=== PATIENT | female | born 2000 | race Caucasian/White ===

== ENCOUNTER 2023-10-01 19:21 | Inpatient (IN) | payer MEDICAID, SELFPAY ==
[2023-10-01 19:39] VITALS: PULSE 116; O2SAT 97
[2023-10-01 19:40] VITALS: BP 123/77; PULSE 116; RESP 18; TEMP 36.6
[2023-10-01 19:43] VITALS: BMI 37.3
[2023-10-01 19:59] LABS: Absolute Lymphocyte Count 2.29 X10^3/uL (0.83-4.51); Absolute Neutrophil Count 7.8 X10^3/uL (2.0-7.7); Basophil# 0.03 X10^3/uL; Basophil% 0.3 % (0-1); Eosinophil# 0.04 X10^3/uL; Eosinophils% 0.4 % (0-5); Hematocrit 31.5 % (37-47); Hemoglobin 9.7 g/dL (12.0-15.0); Lymphocyte # 2.29 X10^3/ul (0.83-4.51); Mean Corp Hgb Conc 30.8 g/dL (32-36); Mean Corpuscular Hgb 22.7 pg (27.0-32.0); Mean Corpuscular Volume 73.6 fL (81-99); Monocyte# 0.69 X10^3/uL; Monocyte% 6.3 % (0-10); NRBC Flagged by Analyzer 0 % (0-5); Neutrophil # 7.75 X10^3/uL (2.7-7.7); Neutrophil % 71.2 % (47-70); Platelet Count 142 K/mm3 (150-450); RBC Distribution Width CV 16.2 % (11.6-14.6); RBC Distribution Width SD 42.3 fl (35.1-43.9); Red Blood Count 4.28 M/mm3 (4.2-5.4); White Blood Count 10.9 K/mm3 (4.4-11.0)
[2023-10-01] MEDS: miSOPROStol 25 MCG TABLET PO (20:18)
[2023-10-01 20:39] LABS: Syphilis Antibodies Non-reactive
[2023-10-01] MEDS: LACTATED RINGERS 500 ML 999 ML IV (22:44)
[2023-10-02] VITALS (33 sets, daily range): BP systolic 103–137; BP diastolic 57–89; PULSE 70–103; RESP 16–18; TEMP 36.2–37.1; O2SAT 81–100
[2023-10-02 01:02] LABS: ROM Internal Control Test YES-OK TO RESULT pt. (Internal QC); ROM Patient Test Negative (Negative); Record Kit Lot#, ROM+ K1409
[2023-10-02] MEDS: miSOPROStol 25 MCG TABLET PO ×2 (01:14→05:17)
--- NOTE | 2023-10-02 07:05 | PCM.HP.OB ---
HPI - General General Date of Admission: 10/01/23 Date of Service: 10/02/23 Chief Complaint: Induction of labor HPI Narrative MAJOR ANDREWS, is a 22 F who presents induction of labor at 41 weeks. Known hx of von Willebrand type one. Has minh seen by hematology and anesthesia. Labs normal September 12. Redrawn yesterday but results will take days. Patient has never needed DDAVP. Does have desmopressin but does remember needing to use it for anything. Waiting for approval for epidural placement from anesthesia. Maternal Data Information Final DEDRA: 09/25/23 Gestational age: 41 weeks [facility] Medical History Anxiety Family history of cleft palate Von Willebrand disease type IA Home Medications desmopressin 150 mcg/spray (0.1 mL) nasal spray 2 spray intranasal DAILY PRN bleeding 10/01/23 [History Last Taken Unknown] famotidine 20 mg tablet 40 mg PO DAILY heartburn 10/01/23 [History Last Taken 09/29/23] ondansetron 4 mg disintegrating tablet 4 mg PO Q6H PRN PRN nausea 10/01/23 [History Last Taken Unknown] vit no.95-ferrous fumarate 28 mg-folic acid 800 mcg tablet () 1 tab PO DAILY 10/01/23 [History Last Taken Unknown] Allergy/AdvReac Type Severity Reaction Status Date / Time aspirin Allergy Unknown Other Verified 10/01/23 19:47 ibuprofen AdvReac Other Verified 10/01/23 19:47 NSAIDS (Non-Steroidal AdvReac Other Verified 10/01/23 19:47 Anti-Inflamma Surgical History History of tonsillectomy and adenoidectomy Social History Smoking Status: Never smoker History 1 Elective abortions Hx Para 0 Spontaneous abortions Hx # Term Pregnancies Ectopic pregnancies Hx # Pregnancies Multiple births # of living children NST FHR Rate Baby A Baseline: 140 Variability:: Moderate Accelerations:: 15 x 15 Decelerations:: None NST Reactive:: Yes FHR Category:: Category I Uterine Activity:: occassional Vital Signs Vital Signs Vital Signs: 10/01/23 19:39 10/01/23 19:39 10/01/23 19:40 Temperature Temperature Source Pulse Rate 116 H Respiratory Rate Blood Pressure 123/77 H BP Systolic 123 BP Diastolic 77 Pulse Ox 97 10/01/23 19:40 10/01/23 19:40 10/01/23 19:40 Temperature Temperature Source Temporal Pulse Rate 116 H Respiratory Rate 18 Blood Pressure BP Systolic BP Diastolic Pulse Ox 10/01/23 19:40 10/02/23 00:17 10/02/23 00:17 Temperature 97.8 F Temperature Source Pulse Rate 88 Respiratory Rate Blood Pressure BP Systolic BP Diastolic Pulse Ox 98 10/02/23 00:18 10/02/23 00:18 10/02/23 00:18 Temperature Temperature Source Temporal Pulse Rate 88 Respiratory Rate Blood Pressure 132/89 H BP Systolic 132 BP Diastolic 89 Pulse Ox 10/02/23 00:18 10/02/23 00:18 10/02/23 04:10 Temperature 97.4 F L Temperature Source Pulse Rate Respiratory Rate 18 Blood Pressure 119/70 BP Systolic 119 BP Diastolic 70 Pulse Ox 10/02/23 04:10 10/02/23 04:10 10/02/23 04:10 Temperature Temperature Source Temporal Pulse Rate 77 Respiratory Rate 18 Blood Pressure BP Systolic BP Diastolic Pulse Ox 10/02/23 04:10 Temperature 97.6 F L Temperature Source Pulse Rate Respiratory Rate Blood Pressure BP Systolic BP Diastolic Pulse Ox Weight Weight: 86.818 kg Body Mass Index (BMI) 37.3 Physical Exam Const alert and no apparent distress General Appearance: cooperative HEENT normocephalic Resp normal respiratory effort Cardio regular rate GI soft to palpation GI Narrative: gravid, nontender, appropriate for gestational age Extremity no calf tenderness General Extremity: edema Skin no wounds Rashes: No rashes noted Psych activity/motor behavior normal Labs Labs Labs: Blood Type O POSITIVE Antibody Screen NEGATIVE Hct 31.5 % (37-47) L Hgb 9.7 g/dL (12.0-15.0) L Syphilis Total Ab Non-reactive Miscellaneous Test Pending Assessment & Plan (1) 41 weeks gestation of : (2) Von willebrand disease, type 1: COMMENT: ddavp is available quickly if needed PLAN: von willebrand AG 68% on September 12 (3) Encounter for induction of labor: PLAN: cytotec and de paz bulb
--- NOTE | 2023-10-02 07:35 | OB.TRI.HP_ITS ---
[facility] Medical History Anxiety Family history of cleft palate Von Willebrand disease type IA Home Medications desmopressin 150 mcg/spray (0.1 mL) nasal spray 2 spray intranasal DAILY PRN bleeding 10/01/23 [History Last Taken Unknown] famotidine 20 mg tablet 40 mg PO DAILY heartburn 10/01/23 [History Last Taken 09/29/23] ondansetron 4 mg disintegrating tablet 4 mg PO Q6H PRN PRN nausea 10/01/23 [History Last Taken Unknown] vit no.95-ferrous fumarate 28 mg-folic acid 800 mcg tablet () 1 tab PO DAILY 10/01/23 [History Last Taken Unknown] Allergy/AdvReac Type Severity Reaction Status Date / Time aspirin Allergy Unknown Other Verified 10/01/23 19:47 ibuprofen AdvReac Other Verified 10/01/23 19:47 NSAIDS (Non-Steroidal AdvReac Other Verified 10/01/23 19:47 Anti-Inflamma Surgical History History of tonsillectomy and adenoidectomy Social History Smoking Status: Never smoker History 1 Elective abortions Hx Para 0 Spontaneous abortions Hx # Term Pregnancies Ectopic pregnancies Hx # Pregnancies Multiple births # of living children
[2023-10-02] MEDS: 0.9% Normal Saline Single 100 ML IV.SOLN. INTRA-UTER (08:30)
--- NOTE | 2023-10-02 08:54 | PN.OBGYN_ITS ---
Subjective Subjective Coping and doing well. Big gush and leakage of clear fluid. Objective Data Objective Data Vital Signs: Vital Signs Temp Pulse Resp BP Pulse Ox 98.1 F 81 16 119/72 98 10/02/23 07:33 10/02/23 07:38 10/02/23 07:33 10/02/23 07:38 10/02/23 00:17 Weight: 191 lb 6.4 oz Body Mass Index (BMI) 37.3 Intake & Output: Intake and Output for Last 24 Hours 09/30/23 10/01/23 10/02/23 23:59 23:59 23:59 Intake Total 700 / 700 600 / 600 Output Total 300 / 300 800 / 800 Balance 400 / 400 -200 / -200 Lab / Micro Data 10/01/23 19:40 Labs: Laboratory Results - last 24 hr 10/01/23 19:40: WBC 10.9, RBC 4.28, Hgb 9.7 L, Hct 31.5 L, MCV 73.6 L, MCH 22.7 L, MCHC 30.8 L, RDW Std Deviation 42.3, RDW Coeff of Diana 16.2 H, Plt Count 142 L , MPV 11.0, Immature Gran % (Auto) 0.800, Neut % (Auto) 71.2 H, Lymph % (Auto) 21.0, Hendricks % (Auto) 6.3, Eos % (Auto) 0.4, Baso % (Auto) 0.3, Absolute Neuts (auto) 7.8 H, Absolute Lymphs (auto) 2.29, Nucleated RBC % 0, Syphilis Total Ab Non-reactive, Blood Type O POSITIVE, Antibody Screen NEGATIVE 10/02/23 00:25: Vag Amniotic Fld Detect Negative Physical Exam Manual OB Exam: presentation cephalic, dilated 2cm, effaced 60, station -3 and other Angelo inserted without difficulty NS 30ml instilled Psych Judgement: judgement good NST FHR Rate Baby A Baseline: 130 Variability:: Moderate Accelerations:: 15 x 15 Decelerations:: None FHR Category:: Category I Uterine Activity:: Irregular Assessment & Plan (1) Encounter for induction of labor: (2) Von willebrand disease, type 1: COMMENT: ddavp is available quickly if needed (3) 41 weeks gestation of : PLAN: Plan 1) Angelo inserted 2) Start Pitocin after 9:15 3) Positional changes 4) Anesthesia consult
[2023-10-02] MEDS: Lactated Ringers 1,000 ML 200 ML IV ×3 (09:15→22:46)
[2023-10-02] MEDS: Oxytocin 15 Units/NS 250ml 15 UNITS/250 ML IV.SOLN 2 UNITS IV (09:17)
[2023-10-02] MEDS: 0.9% Saline Lock 10 ML Syringe IV (09:18)
[2023-10-02] MEDS: fentaNYL-bupivacaine (epidural) 100 ML BAG EPIDURAL ×3 (10:05→19:02)
[2023-10-02] MEDS: Ondansetron 4 MG/2 ML Vial IV (17:01)
[2023-10-02] MEDS: Acetaminophen 500 MG Tablet PO (19:48)
[2023-10-02] MEDS: LACTATED RINGERS 500 ML 999 ML IV ×2 (19:58→23:25)
[2023-10-02] MEDS: Cefazolin 2 GM in 0.9% Normal Saline (100mL Bag) 100 ML IV (23:56)
[2023-10-02] MEDS: Azithromycin 500 MG in Dextrose 5%-Water (250mL Bag) 250 ML 250 MG IV (23:59)
[2023-10-03] VITALS (18 sets, daily range): BP systolic 103–143; BP diastolic 60–93; PULSE 75–102; RESP 10–19; TEMP 36.1–37; O2SAT 97–100
[2023-10-03] MEDS: 0.9% Normal Saline 1,000 ML IV.SOLN. 1000 ML OPERA.SITE (00:02)
[2023-10-03] MEDS: Desmopressin Acetate 40 MCG/10 ML Vial 26 MCG IV (00:18)
--- NOTE | 2023-10-03 01:00 | PLAC_PTH ---
PATIENT: MAJOR ANDREWS LOC: WP U#:[id number] AGE/SX: 22/F ROOM: [facility] RE10/01/[address]: Dr. Sylvie Dawson MD : 2000 BED: 1 DIS: 10/05/2023 SPEC #: [id number] RECD: 10/03/23 02:50 STATUS: GAVINO NGUYEN #: [id number] EVONNE: 10/03/23 01:[address]: Sylvie Dawson DEPT: SURGICAL PATHOLOGY RECD BY: Leanne Verdin Tissues: Placenta, NOS Procedures: Surgery Specimen Level V HEADER OPERATION: section PRE-OP DIAGNOSIS: Arrest if descent TISSUE SUBMITTED: Placenta MICROSCOPIC DIAGNOSIS Placenta: Placental disc - third trimester placenta (498 gm). Membranes - no pathologic diagnosis. Umbilical cord - three blood vessels and minimal acute inflammation. SJ: 10/05/23 MICROSCOPIC DESCRIPTION Slides are reviewed. GROSS DESCRIPTION SPECIMEN: PLACENTA / CLINICAL INFORMATION: A. Weight: 3.345 kg B. Gestational Age: 42 weeks C. Sex: Male PLACENTAL WEIGHT (POST FIXATION): 498 gm PLACENTAL DIMENSIONS: 16.0 x 16.0 x 3.0 cm PLACENTAL SHAPE: Usual ovoid PLACENTAL WEIGHT FOR GESTATIONAL AGE: Within 10-99th percentile MEMBRANES - Present A. Insertion: Marginal B. Site of rupture from edge: edge from edge of placental disc C. Color of membrane: Thomas-hernandez D. Abnormalities: None UMBILICAL CORD - Present A. Color: Thomas-hernandez B. Insertion: Eccentric C. Length: 48.0 cm D. Diameter: 1.2 cm E. Number of vessels: Three F. Abnormalities: None PLACENTAL DISC - Present A. Color of surface: Thomas-hernandez B. surface abnormalities: None C. Maternal cotyledons: Intact with minimal tears D. Attached retro placental clot: No clot E. Cut surface: Dark red and spongy F. Lesions: None G. Separate clot: Measures 13.0 x 4.0 x 3.0cm SECTIONS SUBMITTED: 1. Membrane roll 2. Cord, maternal end 3. Cord, end 4. Placental disc, and maternal surfaces 5. Placental disc, and maternal surfaces 6. Placental disc, and maternal surfaces AM/mr 10/04/23 TC:2 CPT: 29816
--- NOTE | 2023-10-03 01:10 | OP.PCM_ITS ---
Assessment & Plan (1) CPD (cephalo-pelvic disproportion): (2) Arrest of descent, delivered, current hospitalization: (3) Single live : (4) Von willebrand disease, type 1: COMMENT: ddavp is available quickly if needed Maternal Data Information Final DEDRA: 09/25/23 Gestational age: 41 1/7 Details Operative Information Date of Procedure: 10/03/23 Pre-Operative Diagnosis: arrest of descent, cpd Post-Operative Diagnosis: same Classification: YEIMY Procedure Type: low transverse social worker #1: Radha Patel Type of Anesthesia: Epidural Anesthesiologist: Domenico Hubbard Antibiotic Given: Ancef 2 grams IV x1 and Zithromax 500 mg/5 mL X1 Drain: Angelo to straight drain Estimated Blood Loss: 700 Fluids Replaced: 1200 Procedure Start Time: 00:05 Procedure Stop Time: 00:56 Time of Delivery: 00:07 Findings Description of Procedure: The patient had been completed for 4 hours, pushing for 3 hours. She not had significant descent in the past hour. It was +3 but station was still +1. Decision was made to proceed with section due to CPD and arrest of descent. The patient was taken to the operating room. The pillow was placed in the vagina inflated with 180 cc of normal saline in the usual sterile fashion. She was prepped and draped in the dorsal supine position with a leftward tilt. A Pfannenstiel skin incision was made approximately 2 cm above the symphysis pubis and carried through to underlying layer fascia with the scalpel. The fascia was incised incised in the midline and extended laterally with blunt dissection. The rectus muscles were in the midline and the peritoneum was entered bluntly. The peritoneal incision was stretched and the bladder blade was placed. The uterine incision was made in a low transverse fashion with the scalpel and extended superiorly and inferiorly with blunt dissection. The 's head was brought to the incision in the flexed position and delivered without d ifficulty. The remainder of the infant was delivered with gentle traction and fundal pressure in the standard fashion. The mouth and nares were bulb suctioned. The cord was clamped and cut as the was stimulated. Cord clamping was not delayed as the was not spontaneously crying. The was handed off to the waiting nursing staff. The pillow was deflated. The placenta was delivered with fundal massage and gentle traction in the standard fashion. The uterus was exteriorized and cleared of all clots and debris. There was an extension down to the right side of the uterus. The uterine incision was closed with #1 Vicryl in a running locked fashion. A second layer of the same suture was used in an imbricating fashion. There is still significant bleeding from the right corner of the uterus. I did place several [id number] with #1 Vicryl sutures to control the bleeding. There is also some bleeding from the midline sinus that required 0 Vicryl figure-of- eight sutures. The uterus was then placed back in the peritoneal cavity. There is still some oozing along the incision. Some Surgicel fibrillar was placed down in the right corner at the end of the cervical extension some hemoblast was placed over the incision and pressure was held for 3 minutes and hemostasis was noted. The incision was examined and was found to be hemostatic. The rectus muscles were examined and any bleeding was Bovie cauterized. The parietal peritoneum but not the rectus muscles were reapproximated with 0 Vicryl suture in a running standard fashion. The surgical teams outer gloves were then changed. The rectus fascia was examined and any bleeding was Bovie cauterized and the rectus fascia was closed with looped #1 PDS suture in a running standard fashion. The subcutaneous tissue was examining and any bleeding was Bovie cauterized. The subcutaneous tissue was reapproximated with 3-0 Vicryl suture. The skin was closed in a subcuticular fashion with 3-0 Monocryl. The pillow was removed and a vaginal sweep was completed by me. I performed the entire procedure with assistance. All sponge, lap, and needle counts were correct. The patient was taken to her room for recovery in a stable condition. Presentation: Positive for Vertex Amniotic Fluid Description: Clear (with terminal meconium) Placental Delivery Description: Expressed Placenta Disposition: Sent to Pathology Cord Vessel Description: 3 Vessels Cord Entanglement: Around neck x 2, tight Nuchal Cord Compression: With compression Cord Gases: ABG and VBG Infant A Gender: Male (1 minute): 5 (5 minute): 9 Delayed Cord Clamping: No Complications Complications: none
[2023-10-03] MEDS: Oxytocin 15 Units/NS 250ml 15 UNITS/250 ML IV.SOLN 83 UNITS IV (01:15)
[2023-10-03] MEDS: Acetaminophen 500 MG Tablet 1000 MG PO ×4 (02:56→23:05)
[2023-10-03 03:21] LABS: Pathology Specimen OB SEE PATHOLOGY REPORT
[2023-10-03] MEDS: Lactated Ringers 1,000 ML 100 ML IV (04:17)
--- NOTE | 2023-10-03 07:58 | PCM.PROGNOTE ---
Subjective Subjective patient seen at bedside, doing well. Patient reports good pain control. lochia mild. difficulty latching for . pt denies CP, dizziness, n/v. Objective Data Objective Data Vital Signs: Vital Signs Temp Pulse Resp BP Pulse Ox O2 Del Method 97.4 F L 75 16 111/62 98 Room Air 10/03/23 07:41 10/03/23 07:41 10/03/23 07:41 10/03/23 07:41 10/03/23 07:41 10/03/23 07:41 Oxygen Delivery Method Room Air Weight: 86.818 kg Body Mass Index (BMI) 37.3 Intake & Output: Intake and Output for Last 24 Hours 10/01/23 10/02/23 10/03/23 23:59 23:59 23:59 Intake Total 700 / 700 3460.16 / 3460.16 615 / 615 Output Total 300 / 300 800 / 800 1050 / 1050 Balance 400 / 400 2660.16 / 2660.16 -435 / -435 Lab / Micro Data 10/01/23 19:40 Physical Exam Narrative dressing dry and intact. fundus firm. Const alert and oriented x3 General Appearance: cooperative HEENT normocephalic Neck General: normal visual inspection GI soft to palpation and non-distended GI Narrative: Fundus firm Extremity normal to inspection and no calf tenderness Skin no rashes or lesions noted Neuro oriented x3 and CN's II-XII intact bilaterally Psych mental status grossly normal Assessment & Plan Assessment/Plan (1) Arrest of descent, delivered, current hospitalization: (2) CPD (cephalo-pelvic disproportion): (3) Von willebrand disease, type 1: (4) Delivery by section: PLAN: Plan POD# 0 , Doing well Routine care pain mgmt monitor VS ambulation check cbc this morning due to vwd- ddvap available if needed for bleding kristyn de paz per protocol
[2023-10-03 09:40] LABS: Hematocrit 27.4 % (37-47); Hemoglobin 8.4 g/dL (12.0-15.0); Mean Corp Hgb Conc 30.7 g/dL (32-36); Mean Corpuscular Hgb 22.6 pg (27.0-32.0); Mean Corpuscular Volume 73.9 fL (81-99); Mean Platelet Vol. 10.9 fl (6.2-12.0); Platelet Count 124 K/mm3 (150-450); RBC Distribution Width CV 16.5 % (11.6-14.6); RBC Distribution Width SD 43.2 fl (35.1-43.9); Red Blood Count 3.71 M/mm3 (4.2-5.4); White Blood Count 17.2 K/mm3 (4.4-11.0)
[2023-10-03] MEDS: Senna/Docusate Sodium 1 Tablet PO (20:19)
--- NOTE | 2023-10-03 20:34 | NURSING ---
Yohannes RN gave report to this RN, Yohannes SALAZAR stated that patient has ambulated multiple times and has showered as well.
[2023-10-04] MEDS: oxyCODONE 5 MG Tablet PO ×5 (00:27→21:25)
[2023-10-04 01:15] VITALS: BP 109/73; PULSE 87; RESP 16; TEMP 36.6; O2SAT 98
[2023-10-04] MEDS: Acetaminophen 500 MG Tablet 1000 MG PO ×4 (04:52→23:05)
[2023-10-04 08:32] VITALS: BP 106/71; PULSE 85; RESP 18; TEMP 36.6; O2SAT 97
--- NOTE | 2023-10-04 08:53 | PCM.PN.CNM ---
Subjective Subjective Patient seen at bedside. Ambulating to bathroom. Pain is controlled with PO medications. with support. Lochia decreased. Denies headache, vision changes, SOB, or CP. Objective Data Objective Data Vital Signs: Vital Signs Temp Pulse Resp BP Pulse Ox O2 Del Method 97.9 F 85 18 106/71 97 Room Air 10/04/23 08:32 10/04/23 08:32 10/04/23 08:32 10/04/23 08:32 10/04/23 08:32 10/04/23 08:32 Oxygen Delivery Method Room Air Weight: 191 lb 6.4 oz Body Mass Index (BMI) 37.3 Intake & Output: Intake and Output for Last 24 Hours 10/02/23 10/03/23 10/04/23 23:59 23:59 23:59 Intake Total 3460.16 / 3460.16 1158.33 / 1158.33 Output Total 800 / 800 1450 / 1450 Balance 2660.16 / 2660.16 -291.67 / -291.67 Lab / Micro Data 10/03/23 09:25 Labs: Laboratory Results - last 24 hr 10/01/23 19:40: Miscellaneous Test 10/03/23 09:25: WBC 17.2 H, RBC 3.71 L, Hgb 8.4 L, Hct 27.4 L, MCV 73.9 L, MCH 22.6 L, MCHC 30.7 L, RDW Std Deviation 43.2, RDW Coeff of Diana 16.5 H, Plt Count 124 L, MPV 10.9 ROS Eyes Eyes: Denies blurry vision, change in vision or spots in vision ENT HEENT: Denies dizziness or headache(s) Cardiovascular Cardiovascular: Denies abdominal pain, chest pain or dyspnea Respiratory/Chest Respiratory/Chest: Denies cough, dyspnea, shortness of breath at rest or shortness of breath with exertion Gastrointestinal Gastrointestinal: Denies abdominal pain, diarrhea or vomiting Genitourinary Genitourinary: Denies change in urinary stream, difficulty urinating or dysuria Musculoskeletal Musculoskeletal: Reports none Integumentary Integumentary: Denies rash Neurologic Neurologic: Denies dizziness, headache(s), memory loss or weakness Psychiatric Psychiatric: Reports none Physical Exam Narrative Dressing is dry and intact Const alert and no apparent distress General Appearance: cooperative and comfortable Exam Limitations: no limitations HEENT normocephalic Eyes General Eye: normal appearance of both eyes Neck full ROM General: normal visual inspection Chest Chest: symmetrical chest wall rise Resp normal respiratory effort and normal air movement Effort and Inspection: symmetric chest movement Auscultation: clear to auscultation bilaterally Cardio regular rate and regular rhythm GI normal to inspection, nondistended, normoactive bowel sounds Back/Spine normal ROM Extremity full ROM and no calf tenderness General Extremity: normal exam except as noted Skin no rashes or lesions noted Neuro CN's II-XII intact bilaterally Psych mental status grossly normal Assessment & Plan (1) Delivery by section: (2) Single live : (3) Von willebrand disease, type 1: COMMENT: ddavp is available quickly if needed (4) Care and examination of lactating mother: PLAN: Plan POD 1 Primary C/S Routine care Pain control Increase ambulation HGB 8.4 down from 9.7- asymptomatic Start oral iron BID Anticipate discharge home tomorrow
--- NOTE | 2023-10-04 09:49 | CASEMGMT ---
Social Work Assessment Labor and Delivery Unit Patient Address: [address] [place] [address] [address] [place] [address] Phone number: [phone] Date of Referral: 10/03/23 Time of Referral:? 450 Referred By: Sylvie Dawson Date of Intervention: ??10/04/23 Time of Intervention:?929 Reason for Referral:? history of anxiety Sw completed chart review and acknowledges social work consult due to maternal mental health history positive for anxiety. Sw presented to bedside and introduced self to mother of baby (MOB- Gloria) and father of baby (FOB- Sammy). Sw explained sw role during hospitalization and completed psychosocial assessment. History obtained from: medical records, MOB and FOB Household composition: Currently residing in the family home is MOB, FOB and baby when discharged. Parents deny any issues or concerns with housing at this time. Patient's parent/guardian status:? ?JOSE states that she and RODGER have been together for four years, they were introduced to each other by maternal grandma. JOSE denies any issues of domestic violence or intimate partner violence. Medical History: ?JOSE is 22 year old female who is 1, para 0- now 1 following labor and delivery of . JOSE received routine care during with [facility]. JOSE presented to hospital and delivered baby via vaginal delivery at 41 weeks gestation on 10/03/23. Baby boy, Joesph Alvarez, was born weighing 7lb 9oz with apgars of 5 and 9 at one and five minutes of life respectfully. JOSE states that baby will be followed by Dr. Esposito for pediatrics. Educational Status:? MOB completed her senior year, RODGER went through his senior year but did not graduate. No concerns with reading, learning or comprehension reported. Financial Status: FOB is gainfully employed outside of the home working as a parachute cushion installer. MOB is unemployed. Supplies:?Parents have obtained all necessary baby supplies, including: car seat, safe sleep space, clothes, diapers and wipes. ? Childcare/Caregiver(s):? MOB will be the primary caregiver to baby along with FOB when he is not at work. Transportation:??MOB does not drive, but FOCj drives. MOB states that FOB or a family member will help her get to follow up appointments for herself and baby. Programs/Agencies Involved: ?MOB states that she is connected to insurance provided by [employer] (Medicaid). Sw encouraged MOB to look into receiving WIC. Sw also provided MOB on information regarding Help Me Grow and encouraged linkage should MOB have any concerns with baby's development. MOB expressed understanding but declined linkage at this time. ?? Children Services/Legal Issues:?No history of involvement. No issues or concerns warranting referral to be made at this time. Behavioral Health Issues: ??Mental Health History:??? Substance Use History:?? Family History:? Drug Screens: ?? Family/Social Stressors:? Parents deny issues or concerns at this time. Support Systems: MOB states that FOB, paternal grandparents and her sister are her biggest supports at this time. Depression/Shaken Baby/Safe Sleeping:? Sw educated parents on signs and symptoms of baby blues and depression and anxiety during period. Parents expressed understanding. FOB states that he is not sure if he would be able to recognize if MOB were struggling with her mental health. Sw provided list of most common symptoms for FOB to review. FOB expressed appreciation. FOB states that if mom were to struggle he thinks he would know how to help her. Sw encouraged parents to communicate with each other often about this issue. Parents express understanding. Sw educated parents on shaken baby prevention and ABCs of safe sleep. Parents express understanding. ASSESSMENT:? MOB and baby admitted following labor and delivery of . MOB with mental health history positive for anxiety. This is first baby for both parents, and they express understanding that MOB may be predisposed to experiencing anxiety during this period due to her history of anxiety. MOB states that she is not on any medications, but would be receptive if she really struggled with her mental health now that baby has been born. Parents were observed to provide loving and appropriate hands on care of . Parents were talkative and receptive to sw involvement and support. PLAN:? MOB and baby to be discharged when medically ready. Literature provided to parents regarding: Help Me Grow, shaken baby prevention, safe sleep, and list of county resources that are available to parents should a need present itself. ?No other services requested or indicated. Hebert Petersen, CAN FILLER, LEATHER CLEANER
[2023-10-04] MEDS: Senna/Docusate Sodium 1 Tablet PO (10:56)
[2023-10-04] MEDS: Ferrous Sulfate 325 MG Tablet PO ×2 (10:56→16:58)
[2023-10-04 13:58] VITALS: BP 111/74; PULSE 92; RESP 18; TEMP 37.2; O2SAT 98
[2023-10-04 14:30] LABS: Hematocrit 27.6 % (37-47); Hemoglobin 8.3 g/dL (12.0-15.0); Mean Corp Hgb Conc 30.1 g/dL (32-36); Mean Corpuscular Hgb 22.3 pg (27.0-32.0); Mean Corpuscular Volume 74.2 fL (81-99); Mean Platelet Vol. 10.8 fl (6.2-12.0); Platelet Count 156 K/mm3 (150-450); RBC Distribution Width CV 16.8 % (11.6-14.6); RBC Distribution Width SD 44.3 fl (35.1-43.9); Red Blood Count 3.72 M/mm3 (4.2-5.4); White Blood Count 15.9 K/mm3 (4.4-11.0)
[2023-10-04 20:56] VITALS: BP 111/66; PULSE 97; RESP 16; TEMP 36.6; O2SAT 97
[2023-10-05 03:31] VITALS: BP 125/81; PULSE 94; RESP 16; TEMP 36.3; O2SAT 98
[2023-10-05] MEDS: oxyCODONE 5 MG Tablet PO ×2 (03:38→09:54)
[2023-10-05] MEDS: Acetaminophen 500 MG Tablet 1000 MG PO ×2 (04:58→11:29)
--- NOTE | 2023-10-05 06:26 | PCM.DC.SUM ---
Providers Date of Admission: 10/01/23 Reason For Visit: C SECTION Diagnosis Discharge Diagnosis (1) Delivery by section: Status: Acute (2) Single live : Status: Acute Code(s): Z37.0 - Single live (3) Von willebrand disease, type 1: Status: Acute Code(s): D68.01 - Von Willebrand disease, type 1 (4) Care and examination of lactating mother: Status: Acute Code(s): Z39.1 - Encounter for care and examination of lactating mother (5) Post-operative pain: Status: Acute Code(s): G89.18 - Other acute postprocedural pain Plan POD 2 Primary C/S Routine care Pain control D/C home with follow up in office Medications at Discharge Home Medications desmopressin 150 mcg/spray (0.1 mL) nasal spray 2 spray intranasal DAILY PRN bleeding 10/01/23 famotidine 20 mg tablet 40 mg PO DAILY heartburn 10/01/23 ondansetron 4 mg disintegrating tablet 4 mg PO Q6H PRN PRN nausea 10/01/23 vit no.95-ferrous fumarate 28 mg-folic acid 800 mcg tablet () 1 tab PO DAILY 10/01/23 acetaminophen 500 mg tablet 1,000 mg (2 x 500 mg) PO Q6H #0 tabs 10/05/23 ferrous sulfate 325 mg (65 mg iron) tablet (FeroSul) 325 mg PO 1200,1700 #0 tabs 10/05/23 oxycodone 5 mg tablet 5 - 10 mg (1 - 2 x 5 mg) PO Q4H PRN PRN Pain Score 4-10 5 days #14 tabs 10/05/23 sennosides 8.6 mg-docusate sodium 50 mg tablet (Stool Softener-Stimulant Laxative) 1 - 2 tab PO DAILY #0 tabs 10/05/23 Hospital Course Operations section Procedures None Summary of Care Provided Minutes Spent on Discharge: 15 Hospital Course: Patient had primary section. Hospital course was uneventful. Physical Exam Narrative Patient seen at bedside. Denies headache, dizziness, SOB, or CP. Ambulating and voiding without difficulty. Passing flatus. with minimal support. Pain controlled. Desires discharge home today. Weight / BMI Weight Weight: 191 lb 6.4 oz Body Mass Index (BMI) 37.3 ABG / Lab / Microbiology Data 10/04/23 14:05 Laboratory: Laboratory Results - last 24 hr 10/04/23 14:05: WBC 15.9 H, RBC 3.72 L, Hgb 8.3 L, Hct 27.6 L, MCV 74.2 L, MCH 22.3 L, MCHC 30.1 L, RDW Std Deviation 44.3 H, RDW Coeff of Diana 16.8 H, Plt Count 156, MPV 10.8 Meaningful Use Info Meaningful Use Diagnoses (Choose all that apply): None applicable Discharge Plan Admission Admit Date/Time: 10/01/23 19:21 Primary Reason for Your Visit: Labor and Delivery Attending Provider: Sylvie Dawson Discharge Orders/Prescriptions Prescriptions: New sennosides-docusate sodium [Stool Softener-Stimulant Laxat] 8.6-50 mg Tablet 1 - 2 tab PO DAILY Qty: 0 0RF acetaminophen 500 mg Tablet 1,000 mg PO Q6H Qty: 0 0RF ferrous sulfate [FeroSul] 325 mg (65 mg iron) Tablet 325 mg PO 1200,1700 Qty: 0 0RF oxycodone 5 mg Tablet 5 - 10 mg PO Q4H PRN PRN (Reason: Pain Score 4-10) 5 Days Qty: 14 0RF Continued famotidine 20 mg tablet 40 mg PO DAILY ondansetron 4 mg tablet,disintegrating 4 mg PO Q6H PRN PRN (Reason: nausea) desmopressin 150 mcg/spray (0.1 mL) spray,non-aerosol 2 spray intranasal DAILY PRN (Reason: bleeding) Rx Instructions: administer into one nostril (only) PNV cmb#95-ferrous fumarate-FA [] 28 mg iron- 800 mcg tablet 1 tab PO DAILY Referrals / Follow Up: Janine Irvin CNM [Med Staff - Adv Practice Prof] - Disposition Disposition (needs filled in before D/C Order can be placed): Home, Self Care
[2023-10-05] MEDS: Senna/Docusate Sodium 1 Tablet PO (09:55)
[2023-10-05 09:57] VITALS: BP 115/78; PULSE 91; RESP 18; TEMP 36.7; O2SAT 96
== END 2023-10-05 12:10 | disposition home or self-care (01) | DRG 540 ==
PROVIDERS: Obstetrics & Gynecology; Admitting Provider Obstetrics & Gynecology; Visit Provider Obstetrics & Gynecology
DX: O62.1 Secondary uterine inertia (principal); D68.01 Von Willebrand disease, type 1; Z37.0 Single live birth; O69.2XX0 Labor and delivery complicated by other cord entanglement, with compression, not applicable or unspecified; O99.12 Other diseases of the blood and blood-forming organs and certain disorders involving the immune mechanism complicating childbirth; Z3A.41 41 weeks gestation of pregnancy; O48.0 Post-term pregnancy; O33.9 Maternal care for disproportion, unspecified
CPT/HCPCS: 59025; 59050; 84112; 85025; 85027; 86780; 86850; 86900; 86901; 88307; 99221; J7030; J7120; A4216; G0378; J2405; J2597